=== PATIENT | male | born 1955 | race Caucasian/White ===

== ENCOUNTER 2017-01-10 14:02 | Inpatient (IN) | payer BC ==
[2017-01-10] VITALS (11 sets, daily range): BP systolic 114–133; BP diastolic 68–83; PULSE 54–92; RESP 16–20; TEMP 97.4–98; O2SAT 95–98
[~2017-01-10] VITALS: Ht 185.4 cm; Wt 116.4 kg
[2017-01-10] MEDS ORDERED: HEPARIN SODIUM - IV 10,000 UNITS/10 ML VIAL ONE ×2 (14:07→14:15)
[2017-01-10] MEDS ORDERED: SODIUM CHLOR 0.9% 1000 ML INJ 1,000 ML IV ONE (14:08)
[2017-01-10] MEDS ORDERED: HEPARIN SODIUM - IV 10,000 UNITS/10 ML VIAL IV STA (14:08)
[2017-01-10] MEDS ORDERED: NITROGLYCERIN-DEXTROSE INJ 250 ML ONE (14:10)
[2017-01-10] MEDS ORDERED: HEPARIN-NS/PF INJ 500 ML ONE (14:15)
[2017-01-10] MEDS ORDERED: NITROGLYCERIN-DEXTROSE INJ 250 ML IV SCH (14:15)
[2017-01-10] MEDS ORDERED: SODIUM CHLORIDE 0.9% FLUSH 5 ML FLUSH IVF PRN ×2 (14:15→15:15)
[2017-01-10] MEDS ORDERED: MIDAZOLAM HCL 2 MG/2 ML VIAL ONE ×2 (14:15→14:31)
[2017-01-10 14:23] LABS: AUTOMATED NEUTROPHIL # 5.4 TH/MM3 (1.8-7.7); BASOPHIL % 0.4 % (0.0-2.0); EOSINOPHIL # 0.1 TH/MM3 (0-0.4); EOSINOPHIL % 1.6 % (0.0-4.0); HEMATOCRIT 41.5 % (39.0-51.0); HEMO FLAGS DIFF FINAL; LYMPH % 28.5 % (9.0-44.0); LYMPHOCYTE # 2.5 TH/MM3 (1.0-4.8); MEAN CELL VOLUME 82.5 FL (80.0-100.0); MEAN CORPUSCULAR HEMOGLOBIN 28.3 PG (27.0-34.0); MEAN CORPUSCULAR HGB CONC 34.2 % (32.0-36.0); MONO % 7.8 % (0.0-8.0); NEUT % 61.7 % (16.0-70.0); PLATELET COUNT 205 TH/MM3 (150-450); RED BLOOD COUNT 5.02 MIL/MM3 (4.50-5.90); WHITE BLOOD COUNT 8.8 TH/MM3 (4.0-11.0)
--- NOTE | 2017-01-10 14:23 | PD ---
HPI Chief Complaint: STEMI Alert Time Seen by Provider: 14:08 Travel History International Travel<30 days: No Contact w/Intl Traveler<30days: No Traveled to known affect area: No History of Present Illness HPI Patient is a 61-year-old male diabetic who presents the emergency department who presents emergency department with complaint of chest pain. Patient is vacationing here for bike week. He was riding his motorcycle when approximately one hour prior to arrival he felt the chest pain. Patient initially stated that he felt that this was more indigestion and felt as though he needed to eat something. The pain worsened and became more pain in the chest going up into the clavicular regions with some shortness of breath and nausea. EMS was called and noted ST elevation in II, III, and F aVF are with typical changes and a STEMI alert was activated prehospital. EKG was transmitted and confirm same. Patient has history of diabetes but denies any history of heart disease. Patient given aspirin, nitroglycerin per EMS. Pain currently 3 out of 5. FORMERLY [facility], [facility] Past Medical History Diabetes: Yes ?: Not Past Surgical History Surgical History: Unable to Obtain (clinical acuity) Social History Tobacco Use: No (not obtained due to clinical acuity) Allergies-Medications (Allergen,Severity, Reaction): Coded Allergies: No Known Allergies (Unverified , 01/10/17) Review of Systems ROS Limitations: Clinical Condition Except as stated in HPI: all other systems reviewed are Neg Physical Exam Exam Limitations: Clinical Condition Narrative GENERAL: Well-appearing male in no acute distress SKIN: Warm and dry. HEAD: Normocephalic. EYES: Pupils equal and round. No scleral icterus. No injection or drainage. ENT: No nasal bleeding or discharge. Mucous membranes pink and moist. NECK: Supple without bruit CARDIOVASCULAR: Regular rate and rhythm. No murmur appreciated. RESPIRATORY: No accessory muscle use. Clear to auscultation. Breath sounds equal bilaterally. GASTROINTESTINAL: Abdomen soft, non-tender, nondistended. Obese MUSCULOSKELETAL: No obvious deformities. No edema. Good distal pulses NEUROLOGICAL: Awake and alert. Motor grossly within normal limits. Normal speech. PSYCHIATRIC: Appropriate mood and affect; insight and judgment normal. Data Data Last Documented VS Vital Signs Date Time Temp Pulse Resp B/P Pulse Ox O2 Delivery O2 Flow Rate FiO2 01/10/17 14:05 98.0 92 16 129/83 98 Orders Heparin Inj (Heparin Inj) (01/10/17 14:07) Troponin I (01/10/17 14:08) Ckmb (Isoenzyme) Profile (01/10/17 14:08) Complete Blood Count With Diff (01/10/17 14:08) I-Stat Profile (01/10/17 14:08) I-Stat Creatinine (01/10/17 14:08) Calcium (01/10/17 14:08) Magnesium (Mg) (01/10/17 14:08) Prothrombin Time / Inr (Pt) (01/10/17 14:08) Act Partial Throm Time (Ptt) (01/10/17 14:08) B-Type Natriuretic Peptide (01/10/17 14:08) Chest, Single Ap (01/10/17 14:08) Electrocardiogram (01/10/17 14:08) Oxygen Administration (01/10/17 14:08) Iv Access Insert/Monitor (01/10/17 14:08) Oximetry (01/10/17 14:08) Sodium Chlor 0.9% 1000 Ml Inj (Ns 1000 M (01/10/17 14:08) Sodium Chloride 0.9% Flush (Ns Flush) (01/10/17 14:15) Nitroglycerin-Dextrose Inj (Nitroglyceri (01/10/17 14:15) Heparin Inj (Heparin Inj) (01/10/17 14:08) Admit Order (Ed Use Only) (01/10/17 14:09) Nitroglycerin-Dextrose Inj (Nitroglyceri (01/10/17 14:10) Labs Laboratory Tests Test 01/10/17 14:05 White Blood Count 8.8 TH/MM3 Red Blood Count 5.02 MIL/MM3 Hemoglobin 14.2 GM/DL Bedside Hemoglobin 14.3 G/DL Hematocrit 41.5 % Bedside Hematocrit 42.0 % Mean Corpuscular Volume 82.5 FL Mean Corpuscular Hemoglobin 28.3 PG Mean Corpuscular Hemoglobin 34.2 % Concent Red Cell Distribution Width 13.0 % Platelet Count 205 TH/MM3 Mean Platelet Volume 7.4 FL Neutrophils (%) (Auto) 61.7 % Lymphocytes (%) (Auto) 28.5 % Monocytes (%) (Auto) 7.8 % Eosinophils (%) (Auto) 1.6 % Basophils (%) (Auto) 0.4 % Neutrophils # (Auto) 5.4 TH/MM3 Lymphocytes # (Auto) 2.5 TH/MM3 Monocytes # (Auto) 0.7 TH/MM3 Eosinophils # (Auto) 0.1 TH/MM3 Basophils # (Auto) 0.0 TH/MM3 CBC Comment DIFF FINAL Differential Comment Prothrombin Time 11.3 SEC Prothromb Time International 1.0 RATIO Ratio Activated Partial 24.9 SEC Thromboplast Time Bedside Sodium 139 MMOL/L Bedside Potassium 4.0 MMOL/L Bedside Chloride 101 MMOL/L Bedside Blood Urea Nitrogen 16 MG/DL Bedside Creatinine 0.9 MG/DL Bedside Glucose 160 MG/DL Calcium Level 8.4 MG/DL Magnesium Level 1.7 MG/DL MDM Medical Decision Making Medical Screen Exam Complete: Yes Emergency Medical Condition: Yes Medical Record Reviewed: Yes Differential Diagnosis 61-year-old type II diabetic here with complaint of chest pain as a STEMI alert. Differential includes ACS, atypical chest pain, GERD, and less likely PE or dissection. Narrative Course Patient met by myself upon emergency department arrival. Placed on monitor, IV established and blood obtained. Twelve-lead EKG shows ST elevation in 2-3 aVF with reciprocal changes in lateral leads consistent with inferior MT. Right sided EKG was obtained showing no evidence of ST elevation in V4 R. Patient had aspirin prior to arrival. Was given nitroglycerin, heparin, and transported to [facility] emergently for cardiac catheter. I-STAT negative. Remainder of patient's blood work is pending at the time this dictation. Dr. Stevenson of cardiology came to the ED to evaluate patient and agrees for cardiac catheterization. Patient's significant other here at bedside, informed of clinical condition. Critical Care Narrative Aggregate critical care time was 35 minutes. Time to perform other separately billable procedures was not included in the critical care time. My time did not include minutes spent treating any other patients simultaneously or on activities that did not directly contribute to the patient's treatment. The services I provided to this patient were to treat and/or prevent clinically significant deterioration that could result in: Cardiopulmonary decompensation, , disability I provided critical care services requiring my management, as noted below: Chart data review, documentation time, medication orders and management, vital sign assessments/reviewing monitor data, ordering and reviewing lab tests, ordering and interpreting/reviewing x-rays and diagnostic studies, care of the patient and discussion of the patient with the admitting physicians. Diagnosis Primary Impression: ST elevation MT (STEMI) Qualified Code: I21.3 - ST elevation myocardial infarction (STEMI), unspecified artery Additional Impressions: Chest pain Qualified Code: I20.0 - Unstable angina pectoris Diabetes Admitting Information Admitting Physician Requests: Admit Nubia Obrien MD Jan 10, 2017 14:23
[2017-01-10 14:31] LABS: APTT (PATIENT) 24.9 SEC (24.3-30.1); PROTHROMBIN TIME - PATIENT 11.3 SEC (9.8-11.6)
[2017-01-10 14:37] LABS: MAGNESIUM 1.7 MG/DL (1.5-2.5)
[2017-01-10] MEDS ORDERED: DOPamine INJ PREMIX 500 ML ONE (14:39)
[2017-01-10] MEDS ORDERED: PRASUGREL 10 MG TAB ONE (14:50)
[2017-01-10] MEDS ORDERED: ATROPINE SULFATE 1 MG/10 ML SYRINGE ONE (14:53)
[2017-01-10] MEDS ORDERED: IOHEXOL 350 MG/ML 100 ML BTL (for Cath Lab) OTHER ONE ×2 (15:00)
[2017-01-10] MEDS ORDERED: PRASUGREL 10 MG TAB PO ONE (15:15)
[2017-01-10] MEDS: ASPIRIN 81 MG CHEW TAB PO SCH (15:15)
[2017-01-10] MEDS ORDERED: MISC INFORMATION XX ONE (15:15)
[2017-01-10] MEDS ORDERED: ONDANSETRON HCL 4 MG/2 ML VIAL IV PRN (15:15)
[2017-01-10] MEDS ORDERED: ATROPINE SULFATE 1 MG/ML VIAL IV PRN (15:15)
--- NOTE | 2017-01-10 15:19 | MB ---
cc: SALLY YANECY DATE OF CONSULTATION: 01/10/2017. REASON FOR CONSULTATION: S-T segment elevation NE. HISTORY OF PRESENT ILLNESS: 61-year-old male with past medical history of diabetes who presented to the hospital with chest pain. EKG showing an inferior S-T segment elevation myocardial infarction. A STEMI alert was activated. The patient reports that he was in his usual state of health until this afternoon when after lunch had burning sensation in his stomach followed by left-sided chest discomfort associated with diaphoresis. He was taken to the emergency department via EMS. Started on Heparin. Currently the patient remains hemodynamically stable. REVIEW OF SYSTEMS: Negative except for that mentioned in the history of present illness. PAST MEDICAL HISTORY: Diabetes. Home Medications: Metformin FAMILY HISTORY: Noncontributory. SOCIAL HISTORY: Denies alcohol use, tobacco use or illicit drug use. PHYSICAL EXAMINATION: VITAL SIGNS: Temperature 98, pulse 92, respiratory rate 16, blood pressure 129/ 83, O2 sat 98% on room air. GENERAL: He is awake, alert x3 in no acute distress. NECK: No jugular venous distention or carotid bruits. HEART: Regular rate and rhythm. There are no murmurs, rubs or gallops. LUNGS: Clear to auscultation bilaterally. No wheezing. No rales. No rhonchi. ABDOMEN: The abdomen is soft, nontender and nondistended. Obese. Positive bowel sounds. EXTREMITIES: There is no cyanosis or edema. Pulses throughout. LABORATORY DATA: Preliminary lab values show sodium 139, potassium 4. Hemoglobin 14, hematocrit of 42. Creatinine 0.9. EKG:Inferior S-T segment elevation NE. ASSESSMENT AND PLAN: 61-year-old male with history of diabetes who presented with S-T segment elevation NE. He remains hemodynamically stable. He is still complaining of some chest discomfort. ACC/AHA Class IA indication for immediate PCI. The risks and benefits of left heart catheterization / intervention including but not limited to neurovascular trauma, dissection, acute kidney injury, stroke, emergent bypass surgery and . The patient understands the risks and is willing to proceed. Thank you for the opportunity to take part in the care of this patient. Further therapy to be determined. Sally Yancey MD UROLOGY SURGEON/JCC /2:23 PM /3:07 PM MTDAngelo
--- NOTE | 2017-01-10 15:43 | MA ---
cc: BCSALLY DATE: 01/10/2017 DATE OF : 1955 PROCEDURE PERFORMED 1. Left heart catheterization. 2. Selective left and right coronary angiography. 3. Left ventricular pressure recordings. 4. Successful PCI / REMI to the right coronary artery. INDICATION ST-segment elevation MO. PROCEDURE DESCRIPTION Consent signed. The patient was taken to the cardiac laboratory monitor in as an emergency. The right groin was prepped and draped in sterile fashion. Using 1 % lidocaine for local anesthesia and a micropuncture kit, a 6-Swazi sheath was inserted into the right common femoral artery. Right common femoral artery angiography was performed to confirm position of the sheath. Then selective left coronary angiography was performed with a JL4 diagnostic catheter. Angiography was taking in multiple views. Then a JR4 guide was used to engage the right coronary artery. The right coronary artery was 100% occluded distally. Additional IV heparin was given for IV anticoagulation. Then a RunThrough wire was inserted and advanced across the occlusion and anchored distally. The lesion was predilated with a 2.5 x 12 balloon followed by insertion and deployment of a 3.0 x 18 drug-eluting stent. The stent was postdilated to high atmospheres with a stent balloon. Final angiographic views revealed good stent expansion and apposition with GINA-III flow. The patient tolerated the procedure well without complications. Estimated blood loss less than 40 cc. Total contrast used was 75 cc. The right groin access site was closed with a Perclose closure device. RESULTS LEFT VENTRICLE The ventricular pressure was 144/20 with an LVEDP of 35. Aortic pressure was 141/78 with a mean pressure of 105. There was no gradient upon pullback from the left ventricle to the aorta. CORONARY ANGIOGRAPHY 1. The left main has GINA-III flow and nonobstructive coronary artery disease. 2. The LAD is a transapical vessel and is giving collaterals to the right coronary artery through its septals. The first diagonal is long and is patent with nonobstructive coronary artery disease. 3. The left circumflex artery has a prominent OM-1. He has a small segment AV groove circumflex. The left circumflex in general is open with GINA-III flow and nonobstructive coronary artery disease. 4. The right coronary artery is completely occluded in its distal segment which has GINA-0 flow. Lesion length is 16 mm. Pre GINA flow 0, post GINA flow III, post stenosis 0. CONCLUSIONS: 1. STEMI, culprit RCA. 2. Successful PCI with drug-eluting stent to the distal RCA. 3. Elevated LVEDP. RECOMMENDATIONS Admit to the cardiac unit. Continue dual-antiplatelet agents with aspirin and prasugrel, as well as medication optimization with beta-blockers, statins, MP inhibitors as tolerated by blood pressure. The patient should get a 2-D echocardiogram before discharge to assess LV systolic function. MD KAJAL Farris/BT /3:01 PM /3:24 PM MTDAngelo
--- NOTE | 2017-01-10 15:53 | RADRPT ---
EXAM DATE/TIME: 01/10/2017 15:34 [place] COMPARISON: No previous studies available for comparison. INDICATIONS : Stroke. MEDICAL HISTORY : Stroke. SURGICAL HISTORY : None. ENCOUNTER: Initial ACUITY: 1 day PAIN SCORE: 0/10 LOCATION: chest FINDINGS: A single view of the chest demonstrates the lungs to be symmetrically aerated without evidence of mas s, infiltrate or effusion. The cardiomediastinal contours are unremarkable. Osseous structures are intact. CONCLUSION: No acute disease. Chris Moe MD FACR on January 10, 2017 at 15:51 Board Certified Radiologist. This report was verified electronically.
[2017-01-10 16:20] LABS: HDL CHOLESTEROL 47.2 MG/DL (40.0-60.0)
--- NOTE | 2017-01-10 17:59 | EKG ---
Date Performed: 01/10/2017 Time Performed: 13:12:24 PTAGE: 61 years EKG: Sinus rhythm POSSIBLE ANTERIOR MYOCARDIAL INFARCTION INFERIOR MYOCARDIAL INFARCTION ACUTE UT INTERPRETATION BASED ON A DEFAULT AGE OF 40 YEARS NO PREVIOUS TRACING DOCTOR: Luis Medina Interpretating Date/Time 01/10/2017 17:57:59
[2017-01-10] MEDS ORDERED: PILL SPLITTER OTHER PRN (21:00)
[2017-01-10] MEDS: METOPROLOL TARTRATE 25 MG TAB PO SCH (21:17)
[2017-01-10] MEDS: ATORVASTATIN 80 MG TAB PO SCH (21:17)
[2017-01-10] MEDS: SODIUM CHLORIDE 0.9% FLUSH 5 ML FLUSH IVF SCH (21:18)
[2017-01-11] VITALS (27 sets, daily range): BP systolic 107–134; BP diastolic 67–88; PULSE 50–78; RESP 16–18; TEMP 98.1–98.7; O2SAT 94–97
[2017-01-11 06:29] LABS: AUTOMATED NEUTROPHIL # 7.4 TH/MM3 (1.8-7.7); BASOPHIL % 0.1 % (0.0-2.0); EOSINOPHIL # 0.1 TH/MM3 (0-0.4); EOSINOPHIL % 1.2 % (0.0-4.0); HEMATOCRIT 43.4 % (39.0-51.0); HEMO FLAGS DIFF FINAL; LYMPH % 21.7 % (9.0-44.0); LYMPHOCYTE # 2.3 TH/MM3 (1.0-4.8); MEAN CELL VOLUME 83.6 FL (80.0-100.0); MEAN CORPUSCULAR HEMOGLOBIN 27.8 PG (27.0-34.0); MEAN CORPUSCULAR HGB CONC 33.2 % (32.0-36.0); MONO % 7.1 % (0.0-8.0); NEUT % 69.9 % (16.0-70.0); PLATELET COUNT 206 TH/MM3 (150-450); RED BLOOD COUNT 5.19 MIL/MM3 (4.50-5.90); RED CELL DISTRIBUTION WIDTH 13.2 % (11.6-17.2); WHITE BLOOD COUNT 10.5 TH/MM3 (4.0-11.0)
[2017-01-11 06:54] LABS: BICARBONATE 27.2 MEQ/L (21.0-32.0); POTASSIUM 4.9 MEQ/L (3.5-5.1)
--- NOTE | 2017-01-11 08:11 | PD.CARD.PN ---
Subjective Subjective Remarks no complaints no overnight events Objective Medications Current Medications Medications (Trade) Dose Ordered Sig/Alden Route Start Time Stop Time Status Last Admin (Nitroglycerin-Dextrose Inj) 250 ml @ 0 mls/hr TITRATE IV 01/10/17 14:15 (NS Flush) 2 ml UNSCH PRN IVF 01/10/17 15:15 (NS Flush) 2 ml BID IVF 01/10/17 21:00 01/10/17 21:18 (Aspirin Chew) 81 mg DAILY PO 01/10/17 15:15 (Effient) 10 mg DAILY PO 01/11/17 09:00 (Atropine Inj) 0.5 mg UNSCH PRN IV 01/10/17 15:15 (Zofran Inj) 4 mg Q4H PRN IV 01/10/17 15:15 (Lopressor) 12.5 mg BID PO 01/10/17 21:00 01/10/17 21:17 (Prinivil) 5 mg DAILY PO 01/11/17 09:00 (Lipitor) 80 mg HS PO 01/10/17 21:00 01/10/17 21:17 (Pill Splitter) 1 ea UNSCH PRN OTHER 01/10/17 21:00 Vital Signs / I&O Vital Signs Date Time Temp Pulse Resp B/P Pulse Ox O2 Delivery O2 Flow Rate FiO2 01/11/17 07:52 98.7 62 18 127/76 96 01/11/17 06:00 54 01/11/17 05:00 54 01/11/17 04:21 56 16 134/88 97 01/11/17 04:00 76 01/11/17 03:00 53 01/11/17 02:00 52 01/11/17 01:00 54 01/11/17 00:00 54 01/10/17 23:31 54 16 114/72 95 01/10/17 23:00 55 01/10/17 22:00 56 01/10/17 21:00 58 01/10/17 20:00 62 01/10/17 20:00 97.9 63 16 133/72 96 01/10/17 19:00 63 01/10/17 18:00 71 01/10/17 17:00 59 01/10/17 16:00 59 01/10/17 15:00 92 01/10/17 15:00 97.4 63 20 118/68 97 01/10/17 14:05 98.0 92 16 129/83 98 I/O 01/10/17 01/10/17 01/10/17 01/11/17 01/11/17 01/11/17 07:00 15:00 23:00 07:00 15:00 23:00 Intake Total 240 ml 500 ml Output Total 1400 ml Balance 240 ml -900 ml Intake Oral 240 ml 500 ml Output Urine Total 1400 ml Stool Total 0 ml Physical Exam GENERAL: Well-nourished, well-developed patient. SKIN: Warm and dry. HEAD: Normocephalic. EYES: No scleral icterus. No injection or drainage. NECK: Supple, trachea midline. No JVD or lymphadenopathy. CARDIOVASCULAR: Regular rate and rhythm without murmurs, gallops, or rubs. RESPIRATORY: Breath sounds equal bilaterally. No accessory muscle use. GASTROINTESTINAL: Abdomen soft, non-tender, nondistended. EXTREMITIES: No cyanosis, or edema. NEUROLOGICAL: Awake, alert, and oriented x 3. Non-focal. Laboratory Laboratory Tests Test 01/10/17 01/11/17 14:05 04:15 White Blood Count 8.8 TH/MM3 10.5 TH/MM3 Red Blood Count 5.02 MIL/MM3 5.19 MIL/MM3 Hemoglobin 14.2 GM/DL 14.4 GM/DL Bedside Hemoglobin 14.3 G/DL Hematocrit 41.5 % 43.4 % Bedside Hematocrit 42.0 % Mean Corpuscular Volume 82.5 FL 83.6 FL Mean Corpuscular Hemoglobin 28.3 PG 27.8 PG Mean Corpuscular Hemoglobin 34.2 % 33.2 % Concent Red Cell Distribution Width 13.0 % 13.2 % Platelet Count 205 TH/MM3 206 TH/MM3 Mean Platelet Volume 7.4 FL 7.9 FL Neutrophils (%) (Auto) 61.7 % 69.9 % Lymphocytes (%) (Auto) 28.5 % 21.7 % Monocytes (%) (Auto) 7.8 % 7.1 % Eosinophils (%) (Auto) 1.6 % 1.2 % Basophils (%) (Auto) 0.4 % 0.1 % Neutrophils # (Auto) 5.4 TH/MM3 7.4 TH/MM3 Lymphocytes # (Auto) 2.5 TH/MM3 2.3 TH/MM3 Monocytes # (Auto) 0.7 TH/MM3 0.7 TH/MM3 Eosinophils # (Auto) 0.1 TH/MM3 0.1 TH/MM3 Basophils # (Auto) 0.0 TH/MM3 0.0 TH/MM3 CBC Comment DIFF FINAL DIFF FINAL Differential Comment Prothrombin Time 11.3 SEC Prothromb Time International 1.0 RATIO Ratio Activated Partial 24.9 SEC Thromboplast Time Bedside Sodium 139 MMOL/L Bedside Potassium 4.0 MMOL/L Bedside Chloride 101 MMOL/L Bedside Blood Urea Nitrogen 16 MG/DL Bedside Creatinine 0.9 MG/DL Bedside Glucose 160 MG/DL Calcium Level 8.4 MG/DL 8.9 MG/DL Magnesium Level 1.7 MG/DL Total Creatine Kinase 76 U/L Troponin I 0.02 NG/ML B-Type Natriuretic Peptide 9 PG/ML Triglycerides Level 171 MG/DL Cholesterol Level 171 MG/DL LDL Cholesterol 90 MG/DL HDL Cholesterol 47.2 MG/DL Cholesterol/HDL Ratio 3.62 RATIO Sodium Level 141 MEQ/L Potassium Level 4.9 MEQ/L Chloride Level 105 MEQ/L Carbon Dioxide Level 27.2 MEQ/L Anion Gap 9 MEQ/L Blood Urea Nitrogen 14 MG/DL Creatinine 0.93 MG/DL Estimat Glomerular Filtration 83 ML/MIN Rate Random Glucose 119 MG/DL Imaging Last Impressions Chest X-Ray 01/10/17 1408 Signed Impressions: Service Date/Time: Tuesday, January 10, 2017 15:34 - CONCLUSION: No acute disease. Chris Moe MD FACR Assessment and Plan Problem List: (1) ST elevation GA (STEMI) Assessment and Plan: s/p PCI/REMI to distal RCA Cont DAPT with ASA and Effient Cont BB, ACEi, Statin Encourage ambulation and incentive spirometry 2Decho today (2) Chest pain (3) Diabetes Problem Qualifiers (1) ST elevation GA (STEMI): Qualified Code: I21.3 - ST elevation myocardial infarction (STEMI), unspecified artery (2) Chest pain: Qualified Code: I20.0 - Unstable angina pectoris (3) Diabetes: Nicho Watts MD Jan 11, 2017 08:11
[2017-01-11] MEDS ORDERED: METF500T PO (09:15)
[2017-01-11] MEDS ORDERED: LISI10TA3 PO (09:15)
[2017-01-11] MEDS: ASPIRIN 81 MG CHEW TAB PO SCH (09:17)
[2017-01-11] MEDS: LISINOPRIL 5 MG TAB PO SCH (09:17)
[2017-01-11] MEDS: SODIUM CHLORIDE 0.9% FLUSH 5 ML FLUSH IVF SCH ×2 (09:17→21:06)
[2017-01-11] MEDS: METOPROLOL TARTRATE 25 MG TAB PO SCH ×2 (09:17→21:06)
[2017-01-11] MEDS: PRASUGREL 10 MG TAB PO SCH (09:17)
--- NOTE | 2017-01-11 09:23 | EKG ---
Date Performed: 01/11/2017 Time Performed: 04:20:32 PTAGE: 61 years EKG: Sinus bradycardia Leftward axis Inferior infarct - age undetermined Abnormal ECG Compared t o prior electrocardiogram,ST elevation and acute injury has resolved. PREVIOUS TRACING : 01/10/2017 13.12 DOCTOR: Luis Medina Interpretating Date/Time 01/11/2017 09:23:15
--- NOTE | 2017-01-11 10:02 | EC ---
Study Study Date:01/11/2017 STUDY CONCLUSIONS SUMMARY - Left ventricle: The cavity size was normal. Wall thickness was normal. Systolic function was normal. The estimated ejection fraction was in the range of 50% to 55%. Hypokinesis of the posterior myocardium. Hypokinesis of the inferior myocardium. - Aortic valve: Valve area: 2.24cm^2(VTI). Valve area: 2.41cm^2 (Vmax). If LV function is below 40, please consider prescribing an ACEI or ARB or document rationale for non-use. PROCEDURE DATA STUDY STATUS: Elective. Procedure: Transthoracic echocardiography. Image quality was suboptimal. Scanning was performed from the parasternal, apical, and subcostal acoustic windows. Study completion: The patient tolerated the procedure well. Transthoracic echocardiography. M-mode, complete 2D, complete spectral Doppler, and color Doppler. Height: Height: 73in. Weight: Weight: 255.5lb. Body mass index: BMI: 33.8kg/m^2. Body surface area: BSA: 2.39m^2. Patient status: Inpatient. CARDIAC ANATOMY LEFT VENTRICLE: The cavity size was normal. Wall thickness was normal. Systolic function was normal. The estimated ejection fraction was in the range of 50% to 55%. Regional wall motion abnormalities: Hypokinesis of the posterior myocardium. Hypokinesis of the inferior myocardium. AORTIC VALVE: Poorly visualized. Doppler: Transvalvular velocity was within the normal range. There was no stenosis. No regurgitation. Valve area: 2.24cm^2(VTI). Indexed valve area: 0.94cm^2/m^2 (VTI). Valve area: 2.41cm^2 (Vmax). Indexed valve area: 1.01cm^2/m^2 (Vmax). Mean gradient: 5mm Hg (S). AORTA: Aortic root: The aortic root was normal in size. MITRAL VALVE: Structurally normal valve. Doppler: Transvalvular velocity was within the normal range. There was no evidence for stenosis. No regurgitation. LEFT ATRIUM: The atrium was normal in size. RIGHT VENTRICLE: Poorly visualized. The cavity size was normal. Wall thickness was normal. PULMONIC VALVE: Doppler: Transvalvular velocity was within the normal range. There was no evidence for stenosis. No regurgitation. TRICUSPID VALVE: Poorly visualized. Doppler: Transvalvular velocity was within the normal range. No regurgitation. PULMONARY ARTERY: The main pulmonary artery was normal-sized. RIGHT ATRIUM: The atrium was normal in size. PERICARDIUM: There was no pericardial effusion. SYSTEMIC VEINS: Inferior vena cava: The vessel was normal in size. Patient weight: 255.5lb _Ejection fraction:_ 65-75% _Fractional shortening:_ 32% up to 5Kg 5-11.5Kg 11.6-22.9Kg 23-45Kg 45-57Kg Aortic Root 7-13 <17 13-22 17-27 17-27 LA diam 6-13 <23 24-38 33-47 37-40 RVID 10-17 7-15 7-15 7-18 8-17 LVIDd 12-22 <32 24-38 33-47 37-40 LVPW 2-4 3-6 5-7 6-8 7-8 IVS 2-4 3-6 5-7 6-8 7-8 BASIC MEASUREMENTS ADULT NORMAL Left ventricle LV internal dimension, ED, chordal *58.8 mm 43-52 level, PLAX LV internal dimension, ES, chordal *47.1 mm 23-38 level, PLAX Fractional shortening, chordal level, *20 % >29 PLAX LV posterior wall thickness, ED 9.21 mm IVS/LVPW ratio, ED 1.03 <1.3 Ventricular septum Septal thickness, ED 9.49 mm Aortic valve Leaflet separation 23 mm 15-26 Aorta Root diameter, ED 37 mm Left atrium Anterior-posterior dimension 34 mm Anterior-posterior dimension index 1.42 cm/m^2 <2.2 BASIC MEASUREMENTS ADULT NORMAL Aortic valve Leaflet separation 23 mm 15-26 DOPPLER MEASUREMENTS ADULT NORMAL Aortic valve Peak velocity, S 141 cm/s Mean velocity, S 113 cm/s VTI, S 31.5 cm Mean gradient, S 5 mm Hg Valve area, VTI 2.24 cm^2 Valve area index, VTI 0.94 cm^2/m^2 Valve area, Vmax 2.41 cm^2 Valve area index, Vmax 1.01 cm^2/m^2 Mitral valve Peak E-wave velocity 70.6 cm/s Peak A-wave velocity 90.3 cm/s Deceleration time 222 ms 150-230 Peak E/A ratio 0.8 Tricuspid valve Regurgitant peak velocity 130 cm/s Maximal regurgitant velocity 130 cm/s Pulmonic valve Peak velocity, S 83.5 cm/s LEGEND: Mean values are shown as u=mean value. Asterisk (*) cruz values outside specified normal range. Prepared and signed by Luis Medina [id number]
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
[2017-01-11] MEDS ORDERED: DEXTROSE 50% IN WATER 50 ML VIAL(D50) IV PUSH PRN (14:45)
[2017-01-11] MEDS ORDERED: GLUCAGON 1 MG/ML VIAL OTHER PRN (14:45)
[2017-01-11] MEDS: INSULIN ASPART SUPPLEMENTAL SCALE SQ SCH ×2 (16:04→21:00)
[2017-01-11] MEDS: ATORVASTATIN 80 MG TAB PO SCH (21:05)
[2017-01-12] VITALS (7 sets, daily range): BP systolic 125–164; BP diastolic 74–78; PULSE 51–71; RESP 16; TEMP 97.5; O2SAT 96–100
--- NOTE | 2017-01-12 07:01 | PD.CARD.PN ---
Subjective Subjective Remarks no complaints no overnight events chest pain free ambulating without difficulty Objective Medications Current Medications Medications (Trade) Dose Ordered Sig/Alden Route Start Time Stop Time Status Last Admin (NS Flush) 2 ml UNSCH PRN IVF 01/10/17 15:15 (NS Flush) 2 ml BID IVF 01/10/17 21:00 01/11/17 21:06 (Aspirin Chew) 81 mg DAILY PO 01/10/17 15:15 01/11/17 09:17 (Effient) 10 mg DAILY PO 01/11/17 09:00 01/11/17 09:17 (Atropine Inj) 0.5 mg UNSCH PRN IV 01/10/17 15:15 (Zofran Inj) 4 mg Q4H PRN IV 01/10/17 15:15 (Lopressor) 12.5 mg BID PO 01/10/17 21:00 01/11/17 21:06 (Prinivil) 5 mg DAILY PO 01/11/17 09:00 01/11/17 09:17 (Lipitor) 80 mg HS PO 01/10/17 21:00 01/11/17 21:05 (Pill Splitter) 1 ea UNSCH PRN OTHER 01/10/17 21:00 (D50w (Vial) Inj) 25 ml UNSCH PRN IV PUSH 01/11/17 14:45 (Glucagon Inj) 1 mg UNSCH PRN OTHER 01/11/17 14:45 Vital Signs / I&O Vital Signs Date Time Temp Pulse Resp B/P Pulse Ox O2 Delivery O2 Flow Rate FiO2 01/12/17 06:00 60 01/12/17 05:00 55 01/12/17 04:00 97.5 60 16 125/74 100 01/12/17 03:00 53 01/12/17 00:00 54 01/11/17 23:00 98.4 59 16 121/71 96 01/11/17 23:00 61 01/11/17 22:00 57 01/11/17 21:00 59 01/11/17 19:00 58 01/11/17 19:00 98.1 58 16 107/67 95 01/11/17 18:00 61 01/11/17 17:00 63 01/11/17 16:00 53 01/11/17 15:58 98.6 62 16 117/72 94 01/11/17 15:00 76 01/11/17 14:00 56 01/11/17 13:00 53 01/11/17 12:00 50 01/11/17 11:36 98.1 54 16 123/73 95 01/11/17 11:00 56 01/11/17 10:00 56 01/11/17 09:00 64 01/11/17 08:00 78 01/11/17 07:52 98.7 62 18 127/76 96 01/11/17 07:00 57 I/O 01/11/17 01/11/17 01/11/17 01/12/17 01/12/17 01/12/17 07:00 15:00 23:00 07:00 15:00 23:00 Intake Total 500 ml 960 ml 600 ml Output Total 1400 ml 0 ml Balance -900 ml 960 ml 600 ml Intake Oral 500 ml 960 ml 600 ml Output Urine Total 1400 ml Stool Total 0 ml 0 ml # Voids 3 3 Physical Exam GENERAL: Well-nourished, well-developed patient. SKIN: Warm and dry. HEAD: Normocephalic. EYES: No scleral icterus. No injection or drainage. NECK: Supple, trachea midline. No JVD or lymphadenopathy. CARDIOVASCULAR: Regular rate and rhythm without murmurs, gallops, or rubs. RESPIRATORY: Breath sounds equal bilaterally. No accessory muscle use. GASTROINTESTINAL: Abdomen soft, non-tender, nondistended. EXTREMITIES: No cyanosis, or edema. NEUROLOGICAL: Awake, alert, and oriented x 3. Non-focal. Assessment and Plan Problem List: (1) ST elevation [place] (STEMI) Assessment and Plan: chest pain free ambulating without difficulty cont DAPT with ASA and Effient Cont BB, Acei and statin stable to d/c home today (2) Chest pain (3) Diabetes Problem Qualifiers (1) ST elevation VA (STEMI): Qualified Code: I21.3 - ST elevation myocardial infarction (STEMI), unspecified artery (2) Chest pain: Qualified Code: I20.0 - Unstable angina pectoris (3) Diabetes: Nicho Watts MD Jan 12, 2017 07:01
[2017-01-12] MEDS ORDERED: METO25TA3 PO (08:12)
[2017-01-12] MEDS ORDERED: LIPI80TA PO (08:12)
[2017-01-12] MEDS ORDERED: LISI-519 PO (08:12)
[2017-01-12] MEDS ORDERED: Aspirin Chew PO (08:12)
[2017-01-12] MEDS ORDERED: PRAS10TA PO (08:12)
--- NOTE | 2017-01-12 08:13 | HHI.DCPOC ---
Discharge Care Plan Diagnosis: (1) ST elevation [place] (STEMI) (2) Diabetes (3) HTN (hypertension) Goals to Promote Your Health * To prevent worsening of your condition and complications * To maintain your health at the optimal level Directions to Meet Your Goals Take your medications as prescribed Follow your dietary instruction Follow activity as directed Keep your appointments as scheduled Take your immunizations and boosters as scheduled If your symptoms worsen call your PCP, if no PCP go to Urgent Care Center or Emergency Room Smoking is Dangerous to Your Health. Avoid second hand smoke Call the 24-hour hour crisis hotline for domestic abuse at Hunter Limon MD Jan 12, 2017 08:13
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
[2017-01-12] MEDS: PRASUGREL 10 MG TAB PO SCH (09:04)
[2017-01-12] MEDS: LISINOPRIL 5 MG TAB PO SCH (09:05)
[2017-01-12] MEDS: METOPROLOL TARTRATE 25 MG TAB PO SCH (09:05)
[2017-01-12] MEDS: ASPIRIN 81 MG CHEW TAB PO SCH (09:06)
[2017-01-12 09:31] LABS: HEMOGLOBIN A1a 1.2 %; HEMOGLOBIN Ao 83.7 %; HEMOGLOBIN LA1C 1.9 %; HEMOGLOBIN P3 3.9 %
== END 2017-01-12 09:30 | disposition home or self-care (01) | DRG 247 ==
LOC: NEPC 14:02 → NEDA 14:11 → HCIS 15:10
PROVIDERS: ADMIT Family Medicine; ATTEND Family Medicine
PROC: 027034Z Dilation of Coronary Artery, One Artery with Drug-eluting Intraluminal Device, Percutaneous Approach (ICD-10-PCS; principal; 2017-01-10)
PROC: 4A023N7 Measurement of Cardiac Sampling and Pressure, Left Heart, Percutaneous Approach (ICD-10-PCS; 2017-01-10)
PROC: B2111ZZ Fluoroscopy of Multiple Coronary Arteries using Low Osmolar Contrast (ICD-10-PCS; 2017-01-10)
DX: I21.3 ST elevation (STEMI) myocardial infarction of unspecified site (principal); I10 Essential (primary) hypertension; E11.9 Type 2 diabetes mellitus without complications; Z79.84 Long term (current) use of oral hypoglycemic drugs
CPT/HCPCS: 71010; 80048; 80061; 82310; 82435; 82550; 82565; 82947; 82948; 83036; 83735; 83880; 84132; 84295; 84484; 84520; 85002; 85025; 85610; 85730; 92941; 93005; 93306; 93454; 96374; C1725; C1760; C1769; C1874; C1887; C1893; G0269; J0461; J1265; J1644; J1815; J2250; J3010; Q9967